=== PATIENT | female | born 1975 | race Asian ===

== ENCOUNTER → 2016-04-14 | Outpatient (CLI) | payer BC ==
--- NOTE | 2016-04-14 09:44 | REP ---
Clinical: Abnormal uterine bleeding . Technique: Transabdominal pelvic ultrasound followed by transvaginal examination for better evaluation of the endometrium and adnexa. Findings: Bladder is unremarkable and measures 10.4 x 9.3 x 6.6 cm . Normal anteverted uterus measures 8.9 x 3.5 x 4.8 cm . The endometrial complex measures 8.1 mm thickness. No discrete uterine or endometrial abnormalities are appreciated. Bilateral ovaries are normal in appearance and vascularity without evidence for torsion. Right ovary measures 2.1 x 2.4 x 2.3 cm. Left ovary measures 1.8 x 1.7 x 3.1 cm. No pelvic fluid or adnexal mass lesions. Impression: 1. Normal pelvic ultrasound.
== END ==
LOC: M WHC 08:51
PROVIDERS: ATTEND Obstetrics & Gynecology
DX: N93.9 Abnormal uterine and vaginal bleeding, unspecified (principal)

== ENCOUNTER → 2016-04-14 | Outpatient (REF) | payer BC ==
[2016-04-14 12:14] LABS: MEAN CORPUSCULAR HEMOGLOBIN 30.4 pg (27.0-33.0); MEAN CORPUSCULAR HGB CONC 34.8 g/dl (32.0-36.5); MEAN CORPUSCULAR VOLUME 87.5 fl (80.0-96.0); RED CELL DISTRIBUTION WIDTH 12.1 % (11.5-14.5); WHITE BLOOD COUNT 6.4 K/mm3 (4.0-10.0)
[2016-04-14 12:50] LABS: FREE T4 1.06 NG/DL (0.76-1.46)
== END ==
LOC: M LABDRAW1 11:33
PROVIDERS: ATTEND Obstetrics & Gynecology
DX: N93.9 Abnormal uterine and vaginal bleeding, unspecified (principal)

== ENCOUNTER → 2016-07-10 | Outpatient (REF) | payer OTHER | LOC: M LAB REF 16:54 | PROVIDERS: ATTEND Nurse Practitioner Family | DX: B02.9 Zoster without complications (principal) ==

== ENCOUNTER → 2017-03-04 | Outpatient (CLI) | payer BC ==
--- NOTE | 2017-03-04 10:22 | REPMRS ---
Patient History The patient states she had a clinical breast exam in 02/20 Patient had first child at age 32. Family history of endometrial cancer in maternal grandmother at age 50 or over and breast cancer in paternal cousin under age 50. Digital Woman Screen Mammo: March 04, 2017 - Exam #: [id number] Bilateral CC and MLO view(s) were taken. Technologist: Shantell Heller, Technologist Prior study comparison: March 03, 2016, digital woman screen mammo performed at [facility]. February 21, 2015, digital woman screen mammo performed at [facility]. FINDINGS: There are scattered fibroglandular densities. There is a moderate amount of residual fibroglandular tissue which is fairly symmetric. There is no interval development of dominant mass, architectural distortion, or clustered microcalcification typical of malignancy. There has been no change in the appearance of the mammogram from the prior studies. ASSESSMENT: BI-RADS/ACR category 1 mammogram. Negative. Recommendation Routine screening mammogram of both breasts in 1 year (for women over age 40). This mammogram was interpreted with the aid of an FDA-approved computer-aided dectection system. Electronically Signed By: Yo Rosa MD 03/04/17 [id number]
== END ==
LOC: M WHC 09:07
PROVIDERS: ATTEND Nurse Practitioner Women's Health
DX: Z12.31 Encounter for screening mammogram for malignant neoplasm of breast (principal)

== ENCOUNTER → 2017-03-04 | Outpatient (REF) | payer OTHER | LOC: M SFHCWAGY 09:37 | PROVIDERS: ATTEND Nurse Practitioner Women's Health | DX: Z12.4 Encounter for screening for malignant neoplasm of cervix (principal) ==

== ENCOUNTER → 2017-05-27 | Outpatient (CLI) | payer BC, OTHER ==
[2017-05-27 13:43] LABS: HEMATOCRIT 42.5 % (36.0-47.0); HEMOGLOBIN 14.4 g/dl (12.0-16.0); MEAN CORPUSCULAR HEMOGLOBIN 30.1 pg (27.0-33.0); MEAN CORPUSCULAR HGB CONC 33.9 g/dl (32.0-36.5); MEAN CORPUSCULAR VOLUME 88.9 fl (80.0-96.0); PLATELET COUNT, AUTOMATED 244 10^3/uL (150-450); RED BLOOD COUNT 4.78 10^6/uL (4.00-5.40); RED CELL DISTRIBUTION WIDTH 12.1 % (11.5-14.5); WHITE BLOOD COUNT 7.6 10^3/uL (4.0-10.0)
== END ==
LOC: M SMT 11:58
DX: N93.9 Abnormal uterine and vaginal bleeding, unspecified (principal)
CPT/HCPCS: 84443

== ENCOUNTER → 2017-05-29 | Outpatient (CLI) | payer BC, OTHER | LOC: M WUC 10:30 | DX: R05 Cough (principal) | CPT/HCPCS: 71046 ==

== ENCOUNTER → 2017-06-03 | Outpatient (CLI) | payer BC, OTHER ==
[2017-06-03 13:51] LABS: BASO % 0.8 % (0.0-1.0); EOS # 0.1 10^3/uL (0.0-0.50); EOS % 1.2 % (0.0-3.0); HEMATOCRIT 37.7 % (36.0-47.0); HEMOGLOBIN 12.7 g/dl (12.0-16.0); IMMATURE GRANULOCYTE % 1.6 % (0-3.0); LYMPH # 1.1 10^3/uL (1.5-4.5); LYMPH % 21.8 % (24.0-44.0); MEAN CORPUSCULAR HEMOGLOBIN 30.7 pg (27.0-33.0); MEAN CORPUSCULAR HGB CONC 33.7 g/dl (32.0-36.5); MEAN CORPUSCULAR VOLUME 91.1 fl (80.0-96.0); MONO # 0.5 10^3/uL (0.0-0.8); MONO % 10.8 % (0.0-5.0); NEUTROPHILS # 3.2 10^3/uL (1.8-7.7); NEUTROPHILS % 63.8 % (36.0-66.0); PLATELET COUNT, AUTOMATED 267 10^3/uL (150-450); RED BLOOD COUNT 4.14 10^6/uL (4.00-5.40); RED CELL DISTRIBUTION WIDTH 12.7 % (11.5-14.5)
[2017-06-03 14:03] LABS: ALBUMIN 3.4 GM/DL (3.2-5.2); ALKALINE PHOSPHATASE 63 U/L (45-117); ALT/SGPT 27 U/L (12-78); ANION GAP 8 MEQ/L (8-16); AST/SGOT 20 U/L (7-37); BILIRUBIN,TOTAL 0.3 MG/DL (0.2-1.0); BLOOD UREA NITROGEN 9 MG/DL (7-18); CALCIUM LEVEL 8.2 MG/DL (8.5-10.1); CARBON DIOXIDE LEVEL 29 MEQ/L (21-32); CHLORIDE LEVEL 101 MEQ/L (98-107); CREATININE FOR GFR 0.63 MG/DL (0.55-1.30); GLOMERULAR FILTRATION RATE > 60.0 (>58); GLUCOSE, FASTING 81 MG/DL (70-100); POTASSIUM SERUM 3.8 MEQ/L (3.5-5.1); SODIUM LEVEL 138 MEQ/L (136-145); TOTAL PROTEIN 6.5 GM/DL (6.4-8.2)
== END ==
LOC: M WUC 10:51
DX: J20.9 Acute bronchitis, unspecified (principal)
CPT/HCPCS: 80053

== ENCOUNTER → 2017-06-08 | Outpatient (CLI) | payer BC | LOC: M WHC 09:46 | DX: N93.9 Abnormal uterine and vaginal bleeding, unspecified (principal) | CPT/HCPCS: 76830 ==

== ENCOUNTER → 2017-07-22 | Outpatient (CLI) | payer BC, OTHER ==
[2017-07-22 20:05] LABS: FREE T4 0.97 NG/DL (0.76-1.46)
[2017-07-22 20:13] LABS: HEMATOCRIT 37.9 % (36.0-47.0); HEMOGLOBIN 12.9 g/dl (12.0-15.5); MEAN CORPUSCULAR HEMOGLOBIN 30.1 pg (27.0-33.0); MEAN CORPUSCULAR VOLUME 88.6 fl (80.0-96.0); PLATELET COUNT, AUTOMATED 234 10^3/uL (150-450); RED BLOOD COUNT 4.28 10^6/uL (4.00-5.40); RED CELL DISTRIBUTION WIDTH 12.7 % (11.5-14.5); WHITE BLOOD COUNT 9.1 10^3/uL (4.0-10.0)
== END ==
LOC: M SMT 14:25
DX: N93.9 Abnormal uterine and vaginal bleeding, unspecified (principal)

== ENCOUNTER → 2017-07-22 | Outpatient (REF) | payer BC, OTHER | LOC: M LAB REF 18:21 | DX: N93.9 Abnormal uterine and vaginal bleeding, unspecified (principal) | CPT/HCPCS: 88304 ==

== ENCOUNTER 2017-08-03 06:09 | Day surgery (SDC) | payer BC, OTHER ==
[2017-08-03] MEDS ORDERED: LR 1,000 ML IV (06:30)
[2017-08-03] MEDS ORDERED: LIDOCAINE 1% MDV 20ML VIAL SQ (06:30)
[2017-08-03 06:41] LABS: HEMATOCRIT 42.7 % (36.0-47.0); HEMOGLOBIN 14.8 g/dl (12.0-15.5); MEAN CORPUSCULAR HEMOGLOBIN 30.5 pg (27.0-33.0); MEAN CORPUSCULAR HGB CONC 34.7 g/dl (32.0-36.5); PLATELET COUNT, AUTOMATED 263 10^3/uL (150-450); RED BLOOD COUNT 4.85 10^6/uL (4.00-5.40); RED CELL DISTRIBUTION WIDTH 12.2 % (11.5-14.5)
[2017-08-03 06:56] LABS: CONTROL LINE HCG INT CTR LINE PRESENT; HCG, SERUM QUALITATIVE NEGATIVE (NEGATIVE)
[2017-08-03] MEDS: SILVER NITRATE APPLICATOR As Ordered (07:00)
[2017-08-03] MEDS ORDERED: MIDAZOLAM INJ 5 MG/ML VIAL (J2250) As Ordered (07:04)
[2017-08-03] MEDS ORDERED: LIDOCAINE 2% INJ 100 MG/5 ML SDV (FOR ANES.) As Ordered (07:04)
[2017-08-03] MEDS ORDERED: PROPOFOL 200 MG/20 ML VIAL As Ordered (07:04)
[2017-08-03] MEDS ORDERED: ROCURONIUM BROMIDE 50 MG/5 ML VIAL As Ordered ×2 (07:04→08:47)
[2017-08-03] MEDS ORDERED: fentaNYL 100 MCG/2 ML INJECTION (J3010) As Ordered ×2 (07:04→07:05)
[2017-08-03] MEDS ORDERED: dexameTHASONE 4 MG/ML 1ML VIAL (J1100) As Ordered (08:12)
[2017-08-03] MEDS ORDERED: ESMOLOL INJ 100MG/10ML VIAL As Ordered (08:12)
[2017-08-03] MEDS ORDERED: ePHEDrine SULFATE 25 MG/5 ML(5MG/ML) SYRINGE As Ordered (08:27)
[2017-08-03] MEDS ORDERED: diphenhydrAMINE INJ 50MG/ML VIAL (J1200) As Ordered (08:27)
[2017-08-03] MEDS: METHYLENE BLUE 0.5% (5MG/ML) 10 ML AMP (PROVAYBLUE)(Q9968 PER 1MG) As Ordered (09:19)
[2017-08-03] MEDS ORDERED: HYDROmorphone HCL 2 MG/ML 1ML VIAL (J1170) As Ordered (09:21)
[2017-08-03] MEDS ORDERED: NEOSTIGMINE 10 MG/10 ML VIAL (J2710) As Ordered (09:44)
[2017-08-03] MEDS ORDERED: GLYCOPYRROLATE INJ 0.2 MG/ML 2 ML VIAL As Ordered (09:44)
[2017-08-03] MEDS ORDERED: KETOROLAC 60 MG/2 ML VIAL (J1885) As Ordered ×2 (09:44→09:45)
[2017-08-03] MEDS: BUPIVACAINE HCL 0.25% 30 ML VIAL As Ordered (10:03)
[2017-08-03] MEDS ORDERED: PERCOCET 5MG/325MG TAB PO ×2 (10:15→10:30)
[2017-08-03] MEDS ORDERED: ONDANSETRON 4MG/2ML VIAL (J2405) IV (10:15)
[2017-08-03] MEDS ORDERED: PROMETHAZINE INJ 25 MG/ML VIAL (J2550) IV (10:15)
[2017-08-03] MEDS ORDERED: fentaNYL 100 MCG/2 ML INJECTION (J3010) IV (10:30)
[2017-08-03] MEDS ORDERED: HYDROmorphone HCL 1 MG/ML SYRINGE (J1170) IV (10:30)
[2017-08-03] MEDS: LR 1,000 ML IV ×3 (10:30→18:11)
[2017-08-03] MEDS: ONDANSETRON 4MG/2ML VIAL (J2405) IV (10:38)
[2017-08-03] MEDS: DOCUSATE SODIUM 100 MG CAP PO ×2 (13:55→20:28)
[2017-08-03] MEDS: PERCOCET 5MG/325MG TAB PO ×2 (13:59→20:28)
[2017-08-03] MEDS: KETOROLAC 30 MG/ML VIAL (J1885) IV ×2 (15:57→22:53)
[2017-08-04] MEDS: LR 1,000 ML IV (02:11)
[2017-08-04] MEDS: KETOROLAC 30 MG/ML VIAL (J1885) IV (05:01)
[2017-08-04 06:28] LABS: BASO % 0.2 % (0.0-1.0); EOS % 0.2 % (0.0-3.0); HEMATOCRIT 35.9 % (36.0-47.0); IMMATURE GRANULOCYTE % 0.5 % (0-3.0); MEAN CORPUSCULAR HEMOGLOBIN 30.8 pg (27.0-33.0); MEAN CORPUSCULAR HGB CONC 34.5 g/dl (32.0-36.5); MEAN CORPUSCULAR VOLUME 89.1 fl (80.0-96.0); MONO # 0.6 10^3/uL (0.0-0.8); MONO % 4.8 % (0.0-5.0); NEUTROPHILS # 9.7 10^3/uL (1.8-7.7); NEUTROPHILS % 78.3 % (36.0-66.0); PLATELET COUNT, AUTOMATED 204 10^3/uL (150-450); RED BLOOD COUNT 4.03 10^6/uL (4.00-5.40); RED CELL DISTRIBUTION WIDTH 12.3 % (11.5-14.5); WHITE BLOOD COUNT 12.4 10^3/uL (4.0-10.0)
[2017-08-04 06:39] LABS: HEMOGLOBIN 12.4 g/dl (12.0-15.5)
[2017-08-04] MEDS: DOCUSATE SODIUM 100 MG CAP PO (08:40)
== END 2017-08-04 08:40 | disposition home or self-care (01) ==
LOC: M SDC 06:09 → M PED 11:05
DX: N92.0 Excessive and frequent menstruation with regular cycle (principal); N85.01 Benign endometrial hyperplasia; N72 Inflammatory disease of cervix uteri; G35 Multiple sclerosis; E78.00 Pure hypercholesterolemia, unspecified; E55.9 Vitamin D deficiency, unspecified; E66.09 Other obesity due to excess calories; Z79.899 Other long term (current) drug therapy
CPT/HCPCS: 58571

== ENCOUNTER → 2018-03-05 | Outpatient (CLI) | payer BC | LOC: M WHC 09:10 | DX: Z12.31 Encounter for screening mammogram for malignant neoplasm of breast (principal); Z85.44 Personal history of malignant neoplasm of other female genital organs | CPT/HCPCS: 77067 ==

== ENCOUNTER → 2018-05-26 | Outpatient (REF) | payer OTHER ==
[~2018-05-26] MED LIST: COLA100C5 PO; COPA1INJ; IBUP80TA PO; MULT1TAB10 PO; OXYC1TAB23 PO; VITA1CAP7 PO
== END ==
LOC: M SFHCWAGY 11:15
PROVIDERS: ATTEND Nurse Practitioner Family
DX: B37.3 Candidiasis of vulva and vagina (principal)

== ENCOUNTER → 2018-06-07 | Outpatient (REF) | payer OTHER | LOC: M SFHCLERA 09:59 | PROVIDERS: ATTEND Physician Assistant | DX: J02.9 Acute pharyngitis, unspecified (principal) ==

== ENCOUNTER → 2019-01-17 | Outpatient (CLI) | payer BC, OTHER ==
[~2019-01-17] MED LIST changes: +D-3-50003 PO; -VITA1CAP7 PO
[2019-01-17 13:17] LABS: ALBUMIN 3.7 GM/DL (3.2-5.2); ALT/SGPT 26 U/L (12-78); BILIRUBIN,TOTAL 0.6 MG/DL (0.2-1.0); BLOOD UREA NITROGEN 14 MG/DL (7-18); CALCIUM LEVEL 9.1 MG/DL (8.5-10.1); CARBON DIOXIDE LEVEL 29 MEQ/L (21-32); CHLORIDE LEVEL 106 MEQ/L (98-107); CREATININE FOR GFR 0.68 MG/DL (0.55-1.30); GLOMERULAR FILTRATION RATE > 60.0 (>58); GLUCOSE, FASTING 107 MG/DL (70-100); SODIUM LEVEL 139 MEQ/L (136-145); TOTAL PROTEIN 6.6 GM/DL (6.4-8.2)
[2019-01-17 13:23] LABS: BASO # 0.1 10^3/uL (0.0-0.2); BASO % 0.9 % (0.0-1.0); EOS # 0.2 10^3/uL (0.0-0.5); EOS % 4.2 % (0.0-3.0); HEMATOCRIT 42.9 % (36.0-47.0); HEMOGLOBIN 14.2 g/dl (12.0-15.5); LYMPH # 1.7 10^3/uL (1.5-5.0); LYMPH % 32.1 % (24.0-44.0); MEAN CORPUSCULAR HEMOGLOBIN 30.6 pg (27.0-33.0); MEAN CORPUSCULAR HGB CONC 33.1 g/dl (32.0-36.5); MEAN CORPUSCULAR VOLUME 92.5 fl (80.0-96.0); MONO # 0.4 10^3/uL (0.0-0.8); MONO % 6.8 % (0.0-5.0); NEUTROPHILS # 2.9 10^3/uL (1.5-8.5); NEUTROPHILS % 55.4 % (36.0-66.0); PLATELET COUNT, AUTOMATED 235 10^3/uL (150-450); RED BLOOD COUNT 4.64 10^6/uL (4.00-5.40); WHITE BLOOD COUNT 5.3 10^3/uL (4.0-10.0)
--- NOTE | 2019-01-18 06:14 | REP ---
Clinical: Nontraumatic pain Technique: AP, lateral, bilateral oblique views right foot . Findings: The osseous structures and joint spaces are intact and normal. There is no evidence for acute fracture or dislocation. Surrounding soft tissues are unremarkable. No subcutaneous emphysema or radiodense foreign body. Impression: Normal age appropriate right foot series. Electronically Signed by Yazan Adan MD 01/18/2019 06:05 A
[2019-01-19 00:07] LABS: Lyme Disease IgG/IgM Antibodie <0.91 ISR (0.00-0.90); Lyme Disease IgM Ab Quantitati <0.80 index (0.00-0.79)
== END ==
LOC: M WUC 08:50
PROVIDERS: ATTEND Physician Assistant
DX: M79.671 Pain in right foot (principal)

== ENCOUNTER → 2019-04-01 | Outpatient (CLI) | payer BC, OTHER ==
--- NOTE | 2019-04-01 09:38 | REPMRS ---
Patient History No breast complaints. The patient states she has not had a clinical breast exam in over a year. Family history of endometrial cancer at age 50 or over in maternal grandmother, breast cancer under age 50 in paternal cousin. 3D TOMOSYNTHESIS WAS PERFORMED. [facility] lifetime [facility] for [facility] cancer [facility] 15.[facility]%. Digital Woman Screen Mammo: April 01, 2019 - Exam #: [id number] Bilateral CC and MLO view(s) were taken. Technologists: Keren Pate, Technologist; Kalpana Landin, Prior study comparison: March 05, 2018, bilateral digital woman screen mammo performed at [facility]. March 04, 2017, digital woman screen mammo performed at [facility]. FINDINGS: The breast tissue is heterogeneously dense. This may lower the sensitivity of mammography. There has been no change in the appearance of the mammogram from the prior studies. There is a moderate amount of residual fibroglandular tissue which is fairly symmetric. There is no interval development of dominant mass, areas of architectural distortion, or clustered microcalcification typical of malignancy. Assessment: BI-RADS/ACR category 1 mammogram. Negative Mammogram. Recommendation Routine screening mammogram in 1 year (for women over age 40). This mammogram was interpreted with the aid of an FDA-approved computer-aided dectection system. Electronically Signed By: Toni Abraham MD 04/01/19 0938
== END ==
LOC: M WHC 08:55
PROVIDERS: ATTEND Nurse Practitioner Women's Health
DX: Z12.31 Encounter for screening mammogram for malignant neoplasm of breast (principal)

== ENCOUNTER → 2020-05-22 | Outpatient (CLI) | payer BC ==
--- NOTE | 2020-05-22 11:23 | REPMRS ---
Patient History The patient states she has not had a clinical breast exam in over a year. Family history of endometrial cancer at age 50 or over in maternal grandmother, breast cancer under age 50 in paternal cousin. Digital Woman Screen Mammo: May 22, 2020 - Exam #: [id number] Bilateral CC and MLO view(s) were taken. Technologist: RT Tiffani Prior study comparison: April 01, 2019, bilateral digital woman screen mammo performed at [facility]. March 05, 2018, bilateral digital woman screen mammo performed at [facility]. March 04, 2017, digital woman screen mammo performed at [facility]. FINDINGS: There are scattered fibroglandular densities. The Volpara volumetric breast density category is:B. There has been no change in the appearance of the mammogram from the prior studies. There is a mild amount of scattered fibroglandular density which is fairly symmetric. There is no interval development of dominant mass, architectural distortion, or grouped microcalcification suggestive of malignancy. 3-D tomosynthesis shows no additional findings. Assessment: BI-RADS/ACR category 1 mammogram. Negative Mammogram. Recommendation Routine screening mammogram of both breasts in 1 year (for women over age 40). This patient's [facility] Lifetime Breast Cancer Risk is estimated at 15.4 %. This mammogram was interpreted with the aid of an FDA-approved computer-aided dectection system. Electronically Signed By: Yo Rosa MD 05/22/20 [id number]
== END ==
LOC: M WHC 09:30
PROVIDERS: ATTEND Nurse Practitioner Women's Health
DX: Z12.31 Encounter for screening mammogram for malignant neoplasm of breast (principal)

== ENCOUNTER → 2021-08-16 | Outpatient (CLI) | payer BC, OTHER | LOC: M WHC 11:08 | PROVIDERS: ATTEND Obstetrics & Gynecology | DX: Z12.31 Encounter for screening mammogram for malignant neoplasm of breast (principal); Z80.3 Family history of malignant neoplasm of breast ==

== ENCOUNTER → 2022-02-11 | Outpatient (CLI) | payer BC, OTHER | LOC: M WHC 14:51 | PROVIDERS: ATTEND Obstetrics & Gynecology | DX: R10.32 Left lower quadrant pain (principal) ==

== ENCOUNTER 2023-12-15 18:09 | Emergency (ER) | payer BC, OTHER ==
[~2023-12-15] VITALS: Ht 167.6 cm; Wt 88.4 kg
[2023-12-15 21:02] VITALS: BP 168/77; TEMP 98.4; O2SAT 94
[2023-12-15] MEDS ORDERED: IBUP-1022 PO (21:14)
[2023-12-15] MEDS: IBUPROFEN 600MG TAB PO ONE (21:18)
== END 2023-12-15 21:22 | disposition home or self-care (01) ==
LOC: M ED 18:09
DX: S60.221A Contusion of right hand, initial encounter (principal); Y92.9 Unspecified place or not applicable; Y93.9 Activity, unspecified; Y99.0 Civilian activity done for income or pay; W23.1XXA Caught, crushed, jammed, or pinched between stationary objects, initial encounter; F10.10 Alcohol abuse, uncomplicated; Z88.8 Allergy status to other drugs, medicaments and biological substances; Z79.1 Long term (current) use of non-steroidal anti-inflammatories (NSAID); Z79.810 Long term (current) use of selective estrogen receptor modulators (SERMs); Z79.899 Other long term (current) drug therapy

== ENCOUNTER → 2024-05-20 | Outpatient (REF) | payer OTHER ==
[~2024-05-20] MED LIST changes: +IBUP-1022 PO
== END ==
LOC: M LAB REF 13:19
PROVIDERS: ATTEND Internal Medicine
DX: G35 Multiple sclerosis (principal); Z51.81 Encounter for therapeutic drug level monitoring

== ENCOUNTER → 2024-08-23 | Outpatient (CLI) | payer OTHER | LOC: M WUC 13:40 | DX: M54.50 Low back pain, unspecified (principal) ==

== ENCOUNTER → 2024-11-18 | Outpatient (CLI) | payer BC | LOC: M WUC 10:16 | PROVIDERS: ATTEND Internal Medicine | DX: M79.672 Pain in left foot (principal); M19.072 Primary osteoarthritis, left ankle and foot ==

== ENCOUNTER → 2024-12-01 | Outpatient (CLI) | payer BC ==
[~2024-12-01] MED LIST changes: -IBUP-1022 PO; +IBUP600T42 PO
== END ==
LOC: M WHC 14:25
PROVIDERS: ATTEND Internal Medicine
DX: R10.30 Lower abdominal pain, unspecified (principal); N83.202 Unspecified ovarian cyst, left side

== ENCOUNTER → 2024-12-19 | Outpatient (CLI) | payer BC ==
[~2024-12-19] MED LIST changes: +ISOVUE-370 76% 100 ML VIAL ONE
== END ==
LOC: M PLAIMG 14:59
PROVIDERS: ATTEND Internal Medicine
DX: R10.2 Pelvic and perineal pain (principal)
CPT/HCPCS: 74177; Q9967